=== PATIENT | female | born 1975 | race Caucasian/White ===

== ENCOUNTER 2022-04-29 14:03 | Emergency (ER) | payer OTHER ==
[2022-04-29] MEDS ORDERED: NAPROSYN500 MG PO (16:57)
[2022-04-29] MEDS ORDERED: CYCLOBENZAPRINE10 MG PO (16:57)
== END 2022-04-29 17:05 | disposition home or self-care (01) ==
LOC: ER1 14:03
DX: S09.90XA Unspecified injury of head, initial encounter (principal); S16.1XXA Strain of muscle, fascia and tendon at neck level, initial encounter; S40.011A Contusion of right shoulder, initial encounter; S50.01XA Contusion of right elbow, initial encounter; S50.11XA Contusion of right forearm, initial encounter; S60.221A Contusion of right hand, initial encounter; V49.50XA Passenger injured in collision with unspecified motor vehicles in traffic accident, initial encounter; Y92.410 Unspecified street and highway as the place of occurrence of the external cause
CPT/HCPCS: 71046; 72125; 73030; 73080; 73090; 73130; 99284